=== PATIENT | male | born 1960 | race Caucasian/White ===

== ENCOUNTER 2022-02-27 05:01 | Emergency (ER) | payer BC ==
[~2022-02-27] VITALS: Ht 185.4 cm; Wt 109.3 kg
[~2022-02-27 05:01] MED LIST: ATOR20TA66 PO; CHOL100046 PO; DILT-91 PO; ESCI10TA PO; RIVA20TA PO
[2022-02-27 11:31] VITALS: BP 152/93
== END 2022-02-27 11:50 | disposition home or self-care (01) ==
LOC: ER 05:02
DX: R07.89 Other chest pain (principal); R07.81 Pleurodynia; I48.91 Unspecified atrial fibrillation; Z86.73 Personal history of transient ischemic attack (TIA), and cerebral infarction without residual deficits; Z95.0 Presence of cardiac pacemaker; Z79.899 Other long term (current) drug therapy
CPT/HCPCS: 71100; 93005; 99284